=== PATIENT | male | born 1960 | race Hispanic/Latino ===

== ENCOUNTER 2017-10-12 07:18 | Day surgery (SDC) | payer BC ==
[~2017-10-12] VITALS: Ht 170.2 cm; Wt 82.1 kg
[~2017-10-12 07:18] MED LIST: ASPIRIN81 MG PO; CIPRO500 MG OR; FARXIGA10 MG PO; LOSARTAN POT50 MG PO; METFORMIN1000 MG OR
[2017-10-12 08:44] VITALS: BP 149/94
== END 2017-10-12 09:05 | disposition home or self-care (01) | DRG 951 ==
LOC: ENDO 07:18
PROVIDERS: ATTEND Surgery
PROC: 0DJD8ZZ Inspection of Lower Intestinal Tract, Via Natural or Artificial Opening Endoscopic (ICD-10-PCS; principal; 2017-10-12)
DX: Z12.11 Encounter for screening for malignant neoplasm of colon (principal); K64.8 Other hemorrhoids; E11.9 Type 2 diabetes mellitus without complications

== ENCOUNTER 2023-07-02 14:06 | Emergency (ER) | payer OTHER ==
[2023-07-02] VITALS (11 sets, daily range): BP systolic 148–158; BP diastolic 82–100
[~2023-07-02] VITALS: Ht 170.2 cm; Wt 79.4 kg
[2023-07-02 16:21] LABS: BASO% 0.3 % (0-3); EOS% 2.8 % (0-8); IMMATURE GRANULOCYTES 0.8 % (0.0-5.0); LYMPH% 28.3 % (15-41); MEAN CORPUSCULAR HGB CONC 33.2 g/dL CAL (32.0-36.0); NEUT# 3.51 thou/uL (1.82-7.42); NEUT% 56.8 % (42-76); RED BLOOD COUNT 5.44 mill/uL (4.70-6.10); RED CELL DISTRI WIDTH 12.1 % (11.5-15.5)
[2023-07-02 16:22] LABS: HEMATOCRIT 52.4 % (39.0-50.0); HEMOGLOBIN 17.4 g/dl (14.0-18.0); MEAN CELL VOLUME 96.3 fL CALC (80.0-100.0)
[2023-07-02 16:44] LABS: INTERNATIONAL NORMALIZED RATIO 1.1 RATIO (0.7-1.3); PROTHROMBIN TIME 10.1 SECONDS (9.0-12.5)
[2023-07-02 16:45] LABS: ALKALINE PHOSPHATASE 41 u/l (38-126); ANION GAP 18 (6-22 (CALC)); BILIRUBIN, TOTAL 0.7 mg/dL (0.2-1.3); BUN 20 mg/dL (8-23); BUN/CREATININE RATIO 17 (12-20 (CALC)); CALCULATED LDLCHOLESTEROL 94 mg/dL (62-129 (CALC)); CARBON DIOXIDE 25 mmol/l (22-30); CHLORIDE 103 mmol/l (95-108); CHOLESTEROL HDL RATIO 3.4 (<4.4 (CALC)); CREATININE 1.2 mg/dL (0.7-1.3); GFR FOR AFR.AMER. > 60 ML/MIN (>=60 (CALC)); GFR OTHER RACES > 60 ML/MIN (>=60 (CALC)); HDL CHOLESTEROL 52 mg/dL (39.0-59.0); POTASSIUM 4.8 mmol/l (3.5-5.1); SGOT/AST 38 u/l (19-48); SODIUM 142 mmol/l (137-146); TOTAL CHOLESTEROL 176 mg/dl (0-199); TOTAL PROTEIN 8.2 g/dL (6.3-8.2); TOTAL TRIGLYCERIDES 155 mg/dl (0-149); VLDL CHOLESTROL 31 mg/dl (4-45 (CALC))
[2023-07-02] MEDS ORDERED: ATORVASTATIN CA10 MG PO (18:07)
== END 2023-07-02 19:27 | disposition left against medical advice (07) | DRG 66 ==
LOC: ED 14:06 → ED-I 18:40 → ED 19:27
PROVIDERS: Family Medicine
DX: I63.9 Cerebral infarction, unspecified (principal); R20.2 Paresthesia of skin; R29.701 NIHSS score 1; I10 Essential (primary) hypertension; E11.9 Type 2 diabetes mellitus without complications; E78.5 Hyperlipidemia, unspecified; Z79.84 Long term (current) use of oral hypoglycemic drugs; Z53.29 Procedure and treatment not carried out because of patient's decision for other reasons
CPT/HCPCS: Q9967